=== PATIENT | female | born 1945 | race Caucasian/White ===

== ENCOUNTER 2017-02-17 14:33 | Emergency (ER) | payer OTHER ==
[2017-02-17] MEDS ORDERED: ONDANSETRON 4 MG/2 ML VIAL IVP ONE ×2 (14:44→16:12)
[2017-02-17 14:47] VITALS: RESP 16
[2017-02-17 15:04] LABS: % IMMATURE GRANULYOCYTES 0.2 % (0.0-1.1); ABSOLUTE IMMATURE GRANULOCYTES 0.02 10^3/uL (0.00-0.10); ADD DIFF? NO; ADD MORPH? NO; ADD SCAN? NO; ATYPICAL LYMPHOCYTE FLAG 0 (0-99); FRAGMENT RBC FLAG 0 (0-99); HEMATOCRIT 34.1 % (38.0-47.0); HEMOGLOBIN 12.1 g/dL (12.6-16.3); LEFT SHIFT FLG 30 (0-99); LIPEMIA HEMOLYSIS FLAG 90 (0-99); MEAN CELL HEMOGLOBIN 31.7 pg (27.9-34.1); MEAN CELL HEMOGLOBIN CONCENTR. 35.5 g/dL (32.4-36.7); MEAN CELL VOLUME 89.3 fL (81.5-99.8); MEAN PLATELET VOLUME 10.2 fL (8.7-11.7); PLATELET CLUMPS FLAG 10 (0-99); PLATELET COUNT 149 10^3/uL (150-400); RED BLOOD CELL COUNT 3.82 10^6/uL (4.18-5.33); RED CELL DISTRIBUTION WIDTH 14.6 % (11.5-15.2)
[2017-02-17] MEDS ORDERED: NS 1,000 ML IV ONE (15:14)
[2017-02-17] MEDS ORDERED: IOPAMIDOL (ISOVUE-300) 100 ML BTL ONE (15:21)
--- NOTE | 2017-02-17 15:22 | EDPHY ---
H & P Stated Complaint: RLQ pain since 0500 today. Started with LLQ and RLQ pain now RLQ. Time Seen by Provider: 02/17/17 15:18 HPI/ROS: CHIEF COMPLAINT: Abdominal pain and vomiting History by patient HISTORY OF PRESENT ILLNESS: 71-year-old woman presents complaining of acute onset of vomiting which began around 5:00 a.m. along with some right lower quadrant pain radiating around to her back. She has vomited multiple times today, especially when she tries to drink water. She has no appetite and has not tried to eat. Pain has been persistent and consistent in her right lower quadrant. She denies any diarrhea. Her last bowel movement was yesterday was normal. She denies any fever. Patient is here visiting from [facility] where she lives but denies any recent febrile illnesses, insect bites or unusual exposures. She denies any dysuria, urgency frequency or hematuria. REVIEW OF SYSTEMS: As in HPI, and all other systems reviewed and are negative Source: Patient, Family - Personal History Current Tetanus/Diphtheria Vaccine: Unsure Current Tetanus Diphtheria and Acellular Pertussis (TDAP): Unsure - Medical/Surgical History Hx Asthma: No Hx Chronic Respiratory Disease: No Hx Diabetes: No Hx Cardiac Disease: No Hx Renal Disease: No Hx Cirrhosis: No Hx Alcoholism: No Hx HIV/AIDS: No Hx Splenectomy or Spleen Trauma: No Other PMH: Graves disease, cataracts - Family History Significant Family History: No pertinent family hx - Social History Smoking Status: Never smoked - Physical Exam Exam: General Appearance: Alert, nontoxic-appearing. Eyes: Pupils equal and round no pallor or injection. ENT, Mouth: Mucous membranes moist. Respiratory: Normal, effort, lungs are clear to auscultation. No wheezes, rales or rhonchi. Cardiovascular: Regular rate and rhythm. S1, S2 Gastrointestinal: Abdomen is soft with mild right lower quadrant tenderness and slight guarding but no rebound, no percussion tenderness, no masses, bowel sounds decreased. Back: No CVA tenderness, no bony tenderness Neurological: Awake, alert and oriented x 3, no pronator drift, normal gait, no pronator drift Skin: Warm and dry, no rashes. Musculoskeletal: Neck is supple nontender. No deformities. Extremitie:s full range of motion, no edema Psychiatric: Patient has normal affect, there is no agitation. Constitutional: Initial Vital Signs Temperature (C) 36.6 C 02/17/17 14:44 Heart Rate 70 02/17/17 14:44 Respiratory Rate 16 02/17/17 14:44 Blood Pressure 164/83 H 02/17/17 14:44 O2 Sat (%) 94 02/17/17 14:44 O2 Delivery Mode Room Air Allergies/Adverse Reactions: No Known Allergies Allergy (Verified 02/17/17 14:47) Home Medications: Medication Instructions Recorded Naproxen 500 mg PO BID PRN #20 tablet 02/17/17 Ondansetron Odt [Zofran Odt 4 mg 4 mg PO Q4 PRN #12 tab 02/17/17 (*)] Synthroid 02/17/17 Medical Decision Making - Diagnostics Imaging Results: Imaging Impressions Abdomen CT 02/17/17 15:18 Impression: 1. Bilateral midureteral obstructive calculi as detailed above with the degree of obstruction more severe on the right and moderate to severe in the left. 2. No CT evidence of appendicitis, abscess or bowel obstruction. 3. Additional incidental small nonobstructive less than 2 mm bilateral renal calculi. 4. Enlarged heterogeneously enhancing uterus. Rule out fibroid versus endometrial mass. At some point, consider pelvic ultrasound for further characterization. Findings discussed with Vaishali Gutierrez MD at 1600 hour, 02/17/2017. Imaging: Discussed imaging studies w/ order desk caller Radiologist ED Course/Re-evaluation: 71-year-old woman who is otherwise healthy presents complaining of vomiting and right lower quadrant pain with exam concerning for appendicitis. In patient was given IV Zofran for her vomiting and IV fluids. She declined pain medicines. CT scan of the abdomen pelvis was obtained. CT revealed bilateral large mid ureteral kidney stones with bilateral moderate hydronephrosis and a large uterine fibroid versus endometrial mass.. Urinalysis showed no evidence of infection. Labs were notable for normal kidney function and an elevated calcium. She had a normal white blood count with a left shift. Patient initially continued to feel nauseated after the 1st dose of Zofran and was declining pain medicines however after the CT scan she began vomiting again received a 2nd dose of Zofran as well as IV ketorolac after which her symptoms resolved. This point she was feeling better. There is no evidence of renal failure infection. Patient does state that she has had prior episode of kidney stones for the 1st time 3 months ago. I discussed case with the urologist science consultant, Dr. Oneil. He will arrange for follow-up with the patient tomorrow. 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 The patient has been given OBGYN phone number for follow-up for this as well as written instructions. Patient understands and is agreeable to this plan. - Data Points Laboratory Results: Laboratory Results 02/17/17 15:00 02/17/17 15:00 02/17/17 02/17/17 02/17/17 16:15 15:00 15:00 WBC 8.20 10^3/uL 10^3/uL (3.80-9.50) RBC 3.82 10^6/uL L 10^6/uL (4.18-5.33) Hgb 12.1 g/dL L g/dL (12.6-16.3) Hct 34.1 % L % (38.0-47.0) MCV 89.3 fL fL (81.5-99.8) MCH 31.7 pg pg (27.9-34.1) MCHC 35.5 g/dL g/dL (32.4-36.7) RDW 14.6 % % (11.5-15.2) Plt Count 149 10^3/uL L 10^3/uL (150-400) MPV 10.2 fL fL (8.7-11.7) Neut % (Auto) 91.0 % H % (39.3-74.2) Lymph % (Auto) 5.9 % L % (15.0-45.0) [place] % (Auto) 2.8 % L % (4.5-13.0) Eos % (Auto) 0.0 % L % (0.6-7.6) Baso % (Auto) 0.1 % L % (0.3-1.7) Nucleat RBC Rel Count 0.0 % % (0.0-0.2) Absolute Neuts (auto) 7.46 10^3/uL H 10^3/uL (1.70-6.50) Absolute Lymphs (auto) 0.48 10^3/uL L 10^3/uL (1.00-3.00) Absolute Monos (auto) 0.23 10^3/uL L 10^3/uL (0.30-0.80) Absolute Eos (auto) 0.00 10^3/uL L 10^3/uL (0.03-0.40) Absolute Basos (auto) 0.01 10^3/uL L 10^3/uL (0.02-0.10) Absolute Nucleated RBC 0.00 10^3/uL 10^3/uL (0-0.01) Immature Gran % 0.2 % % (0.0-1.1) Immature Gran # 0.02 10^3/uL 10^3/uL (0.00-0.10) Sodium 140 mEq/L mEq/L (134-144) Potassium 3.8 mEq/L mEq/L (3.5-5.2) Chloride 107 mEq/L mEq/L (97-110) Carbon Dioxide 21 mEq/l L mEq/l (22-31) Anion Gap 12 mEq/L mEq/L (8-16) BUN 16 mg/dL mg/dL (7-23) Creatinine 0.8 mg/dL mg/dL (0.6-1.0) Estimated GFR > 60 Glucose 127 mg/dL H mg/dL (70-100) Calcium 11.6 mg/dL H mg/dL (8.5-10.4) Phosphorus 2.7 mg/dL mg/dL (2.5-4.5) Urine Color DARK YELLOW Urine Appearance CLOUDY Urine pH 6.5 (5.0-7.5) Ur Specific [place] 1.015 (1.002-1.030) Urine Protein 1+ H (NEGATIVE) Urine Ketones 1+ H (NEGATIVE) Urine Blood 3+ H (NEGATIVE) Urine Nitrate NEGATIVE (NEGATIVE) Urine Bilirubin NEGATIVE (NEGATIVE) Urine Urobilinogen 0.2 EU EU (0.2-1.0) Ur Leukocyte Esterase 1+ H (NEGATIVE) Urine RBC >182 /hpf H /hpf (0-3) Urine WBC 10-15 /hpf H /hpf (0-3) Ur Epithelial Cells 1+ /lpf /lpf (NONE-1+) Urine Bacteria TRACE /hpf H /hpf (NONE SEEN) Urine Mucus 2+ /lpf H /lpf (NONE-1+) Urine Glucose NEGATIVE (NEGATIVE) Medications Given: Discontinued Medications Sodium Chloride (Ns) 1,000 mls @ 0 mls/hr IV ONCE ONE PRN Reason: Wide Open Stop: 02/17/17 15:15 Last Admin: 02/17/17 15:18 Dose: 1,000 mls Ketorolac Tromethamine (Toradol) 15 mg IVP EDNOW ONE Stop: 02/17/17 16:33 Last Admin: 02/17/17 16:42 Dose: 15 mg Ondansetron HCl (Zofran) 4 mg IVP EDNOW ONE Stop: 02/17/17 14:45 Last Admin: 02/17/17 15:04 Dose: 4 mg Ondansetron HCl (Zofran) 4 mg IVP EDNOW ONE Stop: 02/17/17 16:13 Last Admin: 02/17/17 16:42 Dose: 4 mg Departure - Departure Disposition: Home, Routine, Self-Care Clinical Impression: Renal colic on right side, Serum calcium elevated, Uterine mass Hydronephrosis Qualifiers: Hydronephrosis type: with renal calculous obstruction Qualified Code(s): N13.2 - Hydronephrosis with renal and ureteral calculous obstruction Condition: Fair Instructions: Kidney Stones (ED) Additional Instructions: You were seen by Dr. Vaishali Gutierrez today. Dr. Oneil, urologist, will call you later tonight to discuss plan for tomorrow. Please follow up with paper bag inspector, Dr. Busch, for further testing of your uterine mass. This likely needs an ultrasound and possibly biopsy. Please have your calcium rechecked and to determine if you need further testing regarding your high calcium level. Return to the ER if you have worsening pain, inability to take fluids or medications, fever or other worsening or new concerns. Return for any worsening or new concerns. Referrals: NONE *PRIMARY CARE P,. [Primary Care Provider] - As per Instructions Vu Oneil MD [Medical Doctor] - As per Instructions Liudmila Evans MD [Medical Doctor] - As per Instructions Prescriptions: Naproxen 500 mg PO BID PRN #20 tablet PRN Reason: pain Ondansetron Odt [Zofran Odt 4 mg (*)] 4 mg PO Q4 PRN #12 tab PRN Reason: nausea and vomiting
[2017-02-17 15:30] LABS: ANION GAP 12 mEq/L (8-16); CALCIUM 11.6 mg/dL (8.5-10.4); CARBON DIOXIDE 21 mEq/l (22-31); CHLORIDE 107 mEq/L (97-110); CREATININE 0.8 mg/dL (0.6-1.0); GLOMERULAR FILTRATION RATE > 60; GLUCOSE 127 mg/dL (70-100); POTASSIUM 3.8 mEq/L (3.5-5.2); SODIUM 140 mEq/L (134-144)
[2017-02-17 16:20] LABS: LEUKOCYTE ESTERASE,URINE 1+ (NEGATIVE); NITRITE,URINE NEGATIVE (NEGATIVE); PH,URINE 6.5 (5.0-7.5)
[2017-02-17 16:21] LABS: COLOR DARK YELLOW
[2017-02-17 16:28] LABS: BACTERIA TRACE /hpf (NONE SEEN); MUCUS 2+ /lpf (NONE-1+); RBC,URINE >182 /hpf (0-3)
[2017-02-17] MEDS ORDERED: KETOROLAC 15 MG/1 ML SDV IVP ONE (16:32)
[2017-02-17 17:15] VITALS: PULSE 77; O2SAT 96
[2017-02-17 17:50] VITALS: BP 148/78; TEMP 98.1
== END 2017-02-17 17:48 | disposition home or self-care (01) ==
LOC: CED 14:33
DX: N13.2 Hydronephrosis with renal and ureteral calculous obstruction (principal); N85.8 Other specified noninflammatory disorders of uterus; E83.52 Hypercalcemia
CPT/HCPCS: 74177; 96361; 96374; 96375; 96376; 99285; J1885; J2405; Q9967; 80048-PO; 81003-PO; 81015-PO; 84100-PO; 85025-PO

== ENCOUNTER → 2017-03-15 | Outpatient (CLI) | payer OTHER | LOC: FIMAGING 10:29 | PROVIDERS: ATTEND Specialist | DX: N20.1 Calculus of ureter (principal); Z96.0 Presence of urogenital implants ==